=== PATIENT | female | born 1955 | race Caucasian/White ===

== ENCOUNTER 2017-08-17 16:24 | Emergency (ER) | payer MEDICAID ==
[2017-08-17 16:24] VITALS: BMI 29.2
--- NOTE | 2017-08-17 17:14 | C.PDOC ---
History Of Present Illness 61-year-old female, presents to the emergency department with complaints of persistent left-upper quadrant pain/right lower chest wall pain, that started on 07/15, Patient had a nuclear stress test done for chronic chest pain, and since receiving injections, she has been having persistent pain in abdomen. Pain is intermittent in nature and worse at night. No weight loss, vomiting, or fevers. 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 Of note , she states her pain is different from her chronic mid-sternal chest pain. 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 Time Seen by Provider: 08/17/17 17:07 Chief Complaint (Nursing): Chest Pain History Per: Patient History/Exam Limitations: no limitations Onset/Duration Of Symptoms: Days Current Symptoms Are (Timing): Still Present Severity: Moderate Past Medical History Reviewed: Historical Data, Nursing Documentation, Vital Signs Vital Signs: Last Vital Signs Temp 97.7 F 08/17/17 16:44 Pulse 66 08/17/17 16:44 Resp 18 08/17/17 16:44 BP 147/75 08/17/17 16:44 Pulse Ox 96 08/17/17 17:24 - Medical History PMH: Anxiety, Depression, Gastritis, Gall Bladder Disease, Post Traumatic Stress Disorder Surgical History: Cholecystectomy, Tonsillectomy, Family History: States: No Known Family Hx - Social History Hx Tobacco Use: Yes Hx Alcohol Use: No Hx Substance Use: No - Immunization History Hx Tetanus Toxoid Vaccination: No Hx Influenza Vaccination: No Hx Pneumococcal Vaccination: No Review Of Systems Except As Marked, All Systems Reviewed And Found Negative. Constitutional: Negative for: Fever, Weight loss Cardiovascular: Positive for: Chest Pain Respiratory: Negative for: Shortness of Breath Gastrointestinal: Positive for: Abdominal Pain. Negative for: Nausea, Vomiting Musculoskeletal: Negative for: Back Pain Neurological: Negative for: Weakness, Numbness, Headache, Dizziness Physical Exam - Physical Exam Appears: Non-toxic, No Acute Distress Skin: Warm, Dry, No Rash Head: Atraumatic, Normacephalic Eye(s): bilateral: Normal Inspection, PERRL Nose: Normal Oral Mucosa: Moist Lips: Normal Appearing Neck: Normal ROM Cardiovascular: Rhythm Regular, No Murmur Respiratory: Normal Breath Sounds, No Accessory Muscle Use Gastrointestinal/Abdominal: Soft, No Tenderness Extremity: Normal ROM Neurological/Psych: Oriented x3, Normal Speech ED Course And Treatment - Laboratory Results Result Diagrams: 08/17/17 18:17 08/17/17 18:17 ECG: Interpreted By Me ECG Rhythm: Sinus Rhythm ECG Interpretation: Normal Rate From EC O2 Sat by Pulse Oximetry: 96 (on RA) Pulse Ox Interpretation: Normal Progress - Data Reviewed Data Reviewed: Lab, Diagnostic imaging, EKG Disposition - Disposition Disposition Time: 19:00 Condition: STABLE Forms: [facility] (Setswana) - Clinical Impression Clinical Impression: Abdominal pain - Scribe Statement The provider has reviewed the documentation as recorded by the Scribe (Eric Swan) All medical record entries made by the Scribe were at my direction and personally dictated by me. I have reviewed the chart and agree that the record accurately reflects my personal performance of the history, physical exam, medical decision making, and the department course for this patient. I have also personally directed, reviewed, and agree with the discharge instructions and disposition. Physician Patient Turnover Patient Signed Over To: Tigist Ruth Handoff Comments: ANGEL CT, DISPO
[2017-08-17] MEDS ORDERED: Iohexol 240 (50 ml) PO ONE (18:09)
--- NOTE | 2017-08-17 18:16 | RAD ---
HISTORY: abd pain COMPARISON: Chest radiograph dated 06/21/2016. TECHNIQUE: Chest PA and lateral FINDINGS: LUNGS: No active pulmonary disease. PLEURA: No significant pleural effusion identified. No pneumothorax apparent. CARDIOVASCULAR: Normal. OSSEOUS STRUCTURES: No significant abnormalities. VISUALIZED UPPER ABDOMEN: Normal. OTHER FINDINGS: None. IMPRESSION: No active disease.
[2017-08-17] MEDS ORDERED: Iohexol 240 (50 ml) ONE (18:18)
[2017-08-17 18:20] LABS: BASO # 0.1 K/uL (0.0-0.2); BASO % 0.9 % (0.0-2.0); EOS # 0.3 K/uL (0.0-0.7); EOS % 3.7 % (0.0-4.0); HEMATOCRIT 39.2 % (34.0-47.0); LYMPH # 2.6 K/uL (1.0-4.3); LYMPH % 32.1 % (20.0-40.0); MEAN CORPUSCULAR HEMOGLOBIN 28.4 pg (27.0-31.0); MEAN PLATELET VOLUME 9.2 fL (7.2-11.7); MONO # 0.4 K/uL (0.0-0.8); MONO % 4.9 % (0.0-10.0); RED CELL DISTRIBUTION WIDTH 14.3 % (11.5-14.5); WHITE BLOOD COUNT 7.9 K/uL (4.8-10.8)
[2017-08-17 18:33] LABS: BILIRUBIN,TOTAL 0.7 mg/dL (0.2-1.3); CALCIUM 8.8 mg/dl (8.6-10.4); GFR AFRICAN-AMERICAN > 60; GLUCOSE,RANDOM 86 mg/dL (65-105); TOTAL PROTEIN 9.5 g/dL (6.3-8.3)
[2017-08-17 18:34] LABS: ALKALINE PHOSPHATASE 82 U/L (38-126); ALT/SGPT 24 U/L (9-52); AST/SGOT 31 U/L (14-36); BLOOD UREA NITROGEN 9 mg/dL (7-17); CARBON DIOXIDE 26 mmol/L (22-30); CHLORIDE 102 mmol/L (98-107); SODIUM 138 mmol/L (132-148)
[2017-08-17 19:48] VITALS: TEMP 98
[2017-08-17 20:06] LABS: RBC URINE 1 /hpf (0-3); URINE BILIRUBIN NEGATIVE (NEGATIVE); URINE BLOOD NEGATIVE (NEGATIVE); URINE COLOR Straw (YELLOW); URINE GLUCOSE (UA) NORMAL (Normal); URINE KETONE NEGATIVE (NEGATIVE); URINE LEUKOCYTE ESTERASE NEG Leu/uL (Negative); URINE PROTEIN NEGATIVE (NEGATIVE); URINE UROBILINOGEN NORMAL mg/dL (0.2-1.0); WBC URINE 1 /hpf (0-5)
[2017-08-17 22:13] VITALS: BP 135/63; PULSE 64; RESP 16; O2SAT 98
--- NOTE | 2017-08-18 09:36 | CT ---
PROCEDURE: CT Abdomen and Pelvis with contrast HISTORY: abd pain ho dextracardia COMPARISON: None. TECHNIQUE: Contrast dose: None administered. Radiation dose: Total exam DLP = 350.04 mGy-cm. This CT exam was performed using one or more of the following dose reduction techniques: Automated exposure control, adjustment of the mA and/or kV according to patient size, and/or use of iterative reconstruction technique. FINDINGS: LOWER THORAX: Dextro cardia again evident as well as right-sided thoracic aorta. LIVER: Liver is at the left upper quadrant. No suspicious findings seen throughout the liver in this unenhanced exam. GALLBLADDER AND BILE DUCTS: Gallbladder is located at the left upper quadrant. No acute gallbladder findings grossly evident. PANCREAS: Unremarkable. No gross lesion or ductal dilatation. SPLEEN: Spleen is located in the right upper quadrant but appears nonfocal once again. ADRENALS: Unremarkable. No mass. KIDNEYS AND URETERS: Unremarkable. No hydronephrosis. No solid mass. VASCULATURE: Unremarkable. No aortic aneurysm. BOWEL: Moderate fecal loading seen at the distal large bowel with the proximal and mid segments essentially collapsed. No pericolic reaction or fluid collection. APPENDIX: Normal appendix. PERITONEUM: Unremarkable. No free fluid. No free air. LYMPH NODES: Unremarkable. No enlarged lymph nodes. BLADDER: Unremarkable. REPRODUCTIVE: Unremarkable. BONES: No acute fracture. OTHER FINDINGS: None. IMPRESSION: 1. No acute abdominal or pelvic findings as discussed above. 2. Delete status inversus again appreciated. No suspicious interval findings. 3. Prior cholecystectomy again evident.
--- NOTE | 2017-08-20 13:13 | CARD ---
APPROVED REPORT EKG Measurement Heart [id number] <Conclusion> Normal sinus rhythm Misplaced Leads [id number]-V6 Abnormal ECG PLEASE REPEAT
== END 2017-08-17 22:13 | disposition home or self-care (01) ==
LOC: C.ER 16:24
DX: R10.9 Unspecified abdominal pain (principal); K82.9 Disease of gallbladder, unspecified; F41.9 Anxiety disorder, unspecified
CPT/HCPCS: 71020; 74176; 80053; 81001; 83690; 84484; 85025; 93005; 96374; 99285; J2270; Q9966

== ENCOUNTER 2017-10-07 23:20 | Emergency (ER) | payer MEDICAID ==
[2017-10-07 23:21] VITALS: BMI 29.2
[2017-10-07 23:34] VITALS: RESP 18
--- NOTE | 2017-10-08 00:27 | C.PDOC ---
History Of Present Illness The patient presents to the ED for evaluation of left-sided chest pain and mid- epigastric pain which began earlier today. Patient states her symptoms began after she received some localized injections for muscle spasms at her PMD's office earlier today. Patient is speaking in complete sentences and denies fever , chills, cough, shortness of breath, nausea, vomiting. Time Seen by Provider: 10/08/17 00:26 Chief Complaint (Nursing): Abdominal Pain History Per: Patient History/Exam Limitations: no limitations Onset/Duration Of Symptoms: Hrs Current Symptoms Are (Timing): Still Present Severity: Mild Pain Scale Rating Of: 2 Location Of Pain/Discomfort: Epigastric (mid) Radiation Of Pain To:: None Quality Of Discomfort: "Pain" Associated Symptoms: Chest Pain (left-sided ). denies: Fever, Chills, Nausea, Vomiting, Diarrhea Exacerbating Factors: None Alleviating Factors: None Recent travel outside of the [place]: No Additional History Per: Patient Abnormal Vaginal Bleeding: No Past Medical History Reviewed: Historical Data, Nursing Documentation, Vital Signs Vital Signs: Last Vital Signs Temp 97.5 F L 10/08/17 03:27 Pulse 72 10/08/17 03:27 Resp 18 10/08/17 03:27 BP 111/58 L 10/08/17 03:27 Pulse Ox 97 10/08/17 05:36 - Medical History PMH: Anxiety, Depression, Gastritis, Gall Bladder Disease, Post Traumatic Stress Disorder Surgical History: Cholecystectomy, Tonsillectomy, Family History: States: Unknown Family Hx - Social History Hx Tobacco Use: Yes Hx Alcohol Use: No Hx Substance Use: No - Immunization History Hx Tetanus Toxoid Vaccination: No Hx Influenza Vaccination: No Hx Pneumococcal Vaccination: No Review Of Systems Constitutional: Negative for: Fever, Chills Cardiovascular: Positive for: Chest Pain (left-sided). Negative for: Palpitations Respiratory: Negative for: Cough, Shortness of Breath Gastrointestinal: Positive for: Abdominal Pain (mid-epigastric ). Negative for : Nausea, Vomiting, Diarrhea Skin: Negative for: Rash, Lesions, Jaundice, Bruising Physical Exam - Physical Exam Appears: Non-toxic, No Acute Distress Skin: Warm, Dry Head: Normacephalic Eye(s): bilateral: Normal Inspection Oral Mucosa: Moist Throat: No Erythema, No Exudate, Other (clear oropharynx) Neck: Supple Chest: Symmetrical, No Deformity, No Tenderness Cardiovascular: Rhythm Regular, No Murmur, Other (dextrocardia) Respiratory: No Rales, No Rhonchi, No Wheezing Gastrointestinal/Abdominal: Soft, Tenderness (mild, epigastric ), No Guarding, No Rebound Extremity: Normal ROM, Capillary Refill (less than 2 seconds ) Neurological/Psych: Oriented x3 Gait: Steady ED Course And Treatment - Laboratory Results Result Diagrams: 10/08/17 03:39 10/08/17 03:39 ECG: Interpreted By Me, Viewed By Me ECG Rhythm: Nonspecific Changes O2 Sat by Pulse Oximetry: 97 (on RA) Pulse Ox Interpretation: Normal - Radiology CXR: Interpreted by Me, Viewed By Me CXR Interpretation: No: Infiltrates, Fracture, Pnemothorax Reevaluation Time: 06:03 Reassessment Condition: Improved Medical Decision Making Medical Decision Making: Upon provider reevaluation patient is feeling better, is medically stable, and requires no further treatment in the ED at this time. Patient will be discharged home . Counseling was provided and all questions were answered regarding diagnosis and need for follow up with dr quezada. There is agreement to discharge plan. Return if symptoms persist or worsen. Disposition Counseled Patient/Family Regarding: Studies Performed, Diagnosis, Need For Followup - Disposition Referrals: José Antonio Quezada MD [Medical Doctor] - Disposition: HOME/ ROUTINE Disposition Time: 00:27 Condition: FAIR Instructions: Chest Wall Pain (ED), Thoracic Pain (ED) Forms: [facility] (Pashto) - Clinical Impression Clinical Impression: Chest wall pain - Scribe Statement The provider has reviewed the documentation as recorded by the Scribe (Sherrell Posada) Provider Attestation: All medical record entries made by the Scribe were at my direction and personally dictated by me. I have reviewed the chart and agree that the record accurately reflects my personal performance of the history, physical exam, medical decision making, and the department course for this patient. I have also personally directed, reviewed, and agree with the discharge instructions and disposition.
[2017-10-08] MEDS ORDERED: Aspirin 325 mg EC Tablets PO STA (02:38)
[2017-10-08] MEDS ORDERED: Sodium Chloride 0.9% 500 ML IV ONE (02:38)
[2017-10-08] MEDS ORDERED: Aspirin 325 mg EC Tablets PO ONE (03:07)
[2017-10-08] MEDS ORDERED: Sodium Chloride 0.9% 1,000 ML ONE (03:08)
[2017-10-08 03:42] LABS: BASO % 0.2 % (0.0-2.0); HEMOGLOBIN 11.8 g/dL (11.0-16.0); LYMPH # 1.2 K/uL (1.0-4.3); MEAN CELL VOLUME 85.8 fL (81.0-99.0); MEAN CORPUSCULAR HEMOGLOBIN 28.3 pg (27.0-31.0); MEAN PLATELET VOLUME 9.8 fL (7.2-11.7); MONO # 0.1 K/uL (0.0-0.8); MONO % 0.7 % (0.0-10.0); NEUT # 10.5 K/uL (1.8-7.0); NEUT % 89.1 % (50.0-75.0); RBC 4.17 Mil/uL (3.80-5.20); RED CELL DISTRIBUTION WIDTH 14.6 % (11.5-14.5); WHITE BLOOD COUNT 11.7 K/uL (4.8-10.8)
[2017-10-08 03:54] LABS: ALBUMIN 4.3 g/dL (3.5-5.0); ALT/SGPT 42 U/L (9-52); AST/SGOT 38 U/L (14-36); BLOOD UREA NITROGEN 9 mg/dL (7-17); CALCIUM 9.6 mg/dl (8.6-10.4); GFR AFRICAN-AMERICAN > 60; GFR NON-AFRICAN AMERICAN > 60
[2017-10-08 06:11] VITALS: BP 135/69; PULSE 79; TEMP 98; O2SAT 98
--- NOTE | 2017-10-08 08:38 | RAD ---
PROCEDURE: CHEST RADIOGRAPH, 1 VIEW HISTORY: chest pain COMPARISON: 06/21/2016 and 10/31/2015 FINDINGS: LUNGS: Clear. PLEURA: No pneumothorax or pleural fluid seen. CARDIOVASCULAR: Normal. OSSEOUS STRUCTURES: No significant abnormalities. VISUALIZED UPPER ABDOMEN: Normal. OTHER FINDINGS: None. IMPRESSION: No active disease. The left and right labeling is assumed incorrect ; given the normal sided aortic arch on prior chest x-rays
== END 2017-10-08 06:10 | disposition home or self-care (01) ==
LOC: C.ER 23:20
DX: R07.89 Other chest pain (principal); Z87.891 Personal history of nicotine dependence
CPT/HCPCS: 71045; 80053; 84484; 85025; 96374; 96375; 99284; J1885; J7040

== ENCOUNTER 2018-04-02 18:10 | Emergency (ER) | payer MEDICAID ==
[2018-04-02 18:10] VITALS: BMI 29.2
[2018-04-02 18:45] VITALS: PULSE 60; O2SAT 100
--- NOTE | 2018-04-02 19:34 | C.PDOC ---
History Of Present Illness 62 year old female presents to the emergency department with complaints of back pain (contrary to triage notes). Patient reports that her pain has been worsening over the last two months, and she states that she feels as if someone is "stabbing her in the back". She denies fever, chills, nausea, and vomiting. Time Seen by Provider: 04/02/18 19:33 Chief Complaint (Nursing): Abdominal Pain History Per: Patient History/Exam Limitations: no limitations Onset/Duration Of Symptoms: Other (two months) Current Symptoms Are (Timing): Worse Severity: Moderate Pain Scale Rating Of: 4 Location Of Pain/Discomfort: Other (back) Quality Of Discomfort: "Pain" Associated Symptoms: Back Pain. denies: Fever, Chills, Nausea, Vomiting Past Medical History Reviewed: Historical Data, Nursing Documentation, Vital Signs Vital Signs: Last Vital Signs Temp 98.3 F 04/02/18 18:39 Pulse 60 04/02/18 18:39 Resp 20 04/02/18 18:39 BP 130/63 04/02/18 18:39 Pulse Ox 100 04/02/18 20:43 - Medical History PMH: Anxiety, Depression, Fibromyalgia, Gastritis, Gall Bladder Disease, Post Traumatic Stress Disorder Surgical History: Cholecystectomy, Tonsillectomy, Family History: States: No Known Family Hx - Social History Hx Tobacco Use: Yes Hx Alcohol Use: No Hx Substance Use: No - Immunization History Hx Tetanus Toxoid Vaccination: No Hx Influenza Vaccination: No Hx Pneumococcal Vaccination: No Review Of Systems Constitutional: Negative for: Fever, Chills Gastrointestinal: Negative for: Nausea, Vomiting Musculoskeletal: Positive for: Back Pain Physical Exam - Physical Exam Appears: Non-toxic, No Acute Distress Skin: Warm, Dry Head: Normacephalic Eye(s): bilateral: Normal Inspection Oral Mucosa: Moist Neck: Trachea Midline, Supple Chest: Symmetrical Cardiovascular: Rhythm Regular, No Murmur Respiratory: No Rales, No Rhonchi, No Wheezing Gastrointestinal/Abdominal: Soft, No Tenderness, No Guarding, No Rebound Back: No Decreased ROM, Paraspinal Tenderness (reproducible pain left mid- scapulary line between T5-T8 and left mid-axillary line between T7-T9.), Other ( no sign of trauma) Extremity: Bilateral: Normal Color And Temperature Pulses: Left Dorsalis Pedis: Normal, Right Dorsalis Pedis: Normal Neurological/Psych: Oriented x3, Other (no focal deficits) ED Course And Treatment - Laboratory Results Result Diagrams: 04/02/18 19:59 04/02/18 19:59 O2 Sat by Pulse Oximetry: 100 (RA) Pulse Ox Interpretation: Normal - CT Scan/US CT Chest Other Rad Studies (CT/US): Read By Radiologist, Radiology Report Reviewed CT/US Interpretation: IMPRESSION: No acute cardiopulmonary process Progress Note: Plan: CT Chest w/o Contrast. CMP. Lipase. CBC. PTT. Prothombin Time. NaCl IV Fluids. Toradol 30mg IVP. Urinalysis Reevaluation Time: 21:29 Reassessment Condition: Improved Disposition Counseled Patient/Family Regarding: Studies Performed, Diagnosis, Need For Followup, Rx Given - Disposition Referrals: José Antonio Quezada MD [Medical Doctor] - Disposition: HOME/ ROUTINE Disposition Time: 19:33 Condition: FAIR Additional Instructions: Please return if symptoms recur Prescriptions: Naproxen [Naprosyn] 1 tab PO BID PRN #25 tab PRN Reason: Pain Instructions: Costochondritis (DC), Upper Back Pain (DC) Forms: [facility] (Arabic) Print Language: URDU - Clinical Impression Clinical Impression: Costochondral chest pain, Back pain, Muscle strain - Scribe Statement The provider has reviewed the documentation as recorded by the Scribe (Carson Minor) Provider Attestation: All medical record entries made by the Scribe were at my direction and personally dictated by me. I have reviewed the chart and agree that the record accurately reflects my personal performance of the history, physical exam, medical decision making, and the department course for this patient. I have also personally directed, reviewed, and agree with the discharge instructions and disposition.
[2018-04-02] MEDS ORDERED: Sodium Chloride 0.9% 1,000 ML IV ONE (19:38)
[2018-04-02] MEDS ORDERED: Sodium Chloride 0.9% 1,000 ML ONE (19:54)
[2018-04-02 20:05] LABS: BASO # 0.1 K/uL (0.0-0.2); BASO % 0.8 % (0.0-2.0); EOS # 0.3 K/uL (0.0-0.7); EOS % 3.7 % (0.0-4.0); HEMOGLOBIN 11.4 g/dL (11.0-16.0); LYMPH # 3.3 K/uL (1.0-4.3); LYMPH % 41.1 % (20.0-40.0); MEAN CELL VOLUME 83.6 fL (81.0-99.0); MEAN CORPUSCULAR HEMOGLOBIN 28.1 pg (27.0-31.0); MEAN CORPUSCULAR HGB CONC 33.7 g/dL (33.0-37.0); MEAN PLATELET VOLUME 9.3 fL (7.2-11.7); MONO # 0.6 K/uL (0.0-0.8); MONO % 7.3 % (0.0-10.0); NEUT # 3.7 K/uL (1.8-7.0); NEUT % 47.1 % (50.0-75.0); NRBC % 0.2 % (0.0-2.0); RBC 4.06 Mil/uL (3.80-5.20); RED CELL DISTRIBUTION WIDTH 15.4 % (11.5-14.5); WHITE BLOOD COUNT 7.9 K/uL (4.8-10.8)
[2018-04-02 20:14] LABS: INR 1.1; PROTHROMBIN TIME 11.7 SECONDS (9.7-12.2)
[2018-04-02 20:31] LABS: ALB/GLOB RATIO 1.1 (1.0-2.1); ALBUMIN 4.2 g/dL (3.5-5.0); GFR AFRICAN-AMERICAN > 60; GFR NON-AFRICAN AMERICAN > 60; LIPASE 121 U/L (23-300)
[2018-04-02 20:40] LABS: ALT/SGPT 24 U/L (9-52); AST/SGOT 28 U/L (14-36); BLOOD UREA NITROGEN 12 mg/dL (7-17)
[2018-04-02 21:07] LABS: SQUAMOUS EPITHIAL 2 /hpf (0-5); URINE BACTERIA OCC (<OCC); URINE BILIRUBIN NEGATIVE (NEGATIVE); URINE BLOOD NEGATIVE (NEGATIVE); URINE CLARITY Hazy (Clear); URINE COLOR Yellow (YELLOW); URINE GLUCOSE (UA) NORMAL (Normal); URINE LEUKOCYTE ESTERASE 3+ Leu/uL (Negative); URINE PROTEIN NEGATIVE (NEGATIVE); URINE UROBILINOGEN NORMAL mg/dL (0.2-1.0)
[2018-04-02 21:48] VITALS: BP 127/62; RESP 18; TEMP 98
--- NOTE | 2018-04-03 09:34 | CT ---
Date of service: 04/02/2018 PROCEDURE: CT Chest without contrast HISTORY: left mid scapular T5-8 pain COMPARISON: None available. TECHNIQUE: Contiguous axial images were obtained through the chest without intravenous contrast enhancement. Sagittal and coronal reconstructions were performed. Radiation dose (DLP): 192.97 mGy-cm. This CT exam was performed using one or more of the following dose reduction techniques: Automated exposure control, adjustment of the mA and/or kV according to patient size, and/or use of iterative reconstruction technique. FINDINGS: LUNGS: Clear lungs. Visualized airway clear. MEDIASTINUM: TheRight-sided thoracic aorta. Mild aneurysmal dilatation of the ascending thoracic aorta noted measures 3.7 centimeter. The aortic arch is ectatic. The descending thoracic aorta is normal in caliber. . The heart is normal in size . Main pulmonary artery unremarkable. No vascular congestion. No lymphadenopathy. PLEURA: No pleural fluid. No pneumothorax. BONES: No fracture. No destructive lesion. UPPER ABDOMEN: Patient status post cholecystectomy. OTHER FINDINGS: None. IMPRESSION: No evidence of pneumonia or mass lesion in the lungs. Mild aneurysmal dilatation of the ascending thoracic aorta. Preliminary report was submitted by the [facility].
== END 2018-04-02 21:49 | disposition home or self-care (01) ==
LOC: C.ER 18:10
DX: M54.9 Dorsalgia, unspecified (principal); R07.1 Chest pain on breathing; T14.8XXA Other injury of unspecified body region, initial encounter; X58.XXXA Exposure to other specified factors, initial encounter; N39.0 Urinary tract infection, site not specified; Z72.0 Tobacco use
CPT/HCPCS: 71250; 80053; 81001; 83690; 85025; 85610; 85730; 96361; 96374; 99285; J1885; J7030

== ENCOUNTER 2018-11-24 19:09 | Emergency (ER) | payer MEDICAID ==
[2018-11-24 19:09] VITALS: BMI 29.2
[2018-11-24 19:31] VITALS: BP 144/86; PULSE 82; RESP 20; TEMP 98.2; O2SAT 98
--- NOTE | 2018-11-24 21:32 | C.PDOC ---
History Of Present Illness 63 year old female, whose past medical history includes fibromyalgia, anxiety, depression, PTSD, GERD, and dextrocardia, presents to the ED for evaluation of upper back pain that has been intermittent for around 8 months. Patient was evaluated in this ED 8 months ago and underwent a CT scan of her chest. Patient was discharged with instructions to follow up with her primary care doctor. Patient's doctor evaluated her and referred her to pain management. Patient notes her pain occasionally radiates to her chest, and thinks her symptoms may indicate an issue with her heart. Patient has been taking Ibuprofen, Tylenol and Flexeril with limited relief. She denies fever, chills, urinary/bowel incontinence, extremity numbness/weakness, or recent trauma/falls. Time Seen by Provider: 11/24/18 19:45 Chief Complaint (Nursing): Back Pain History Per: Patient History/Exam Limitations: no limitations Onset/Duration Of Symptoms: Other (8 months ) Quality Of Discomfort: "Pain" Previous Symptoms: Back Pain Associated Symptoms: denies: Incontinence, New Weakness, New Numbness Additional History Per: Patient Past Medical History Reviewed: Historical Data, Nursing Documentation, Vital Signs Vital Signs: Last Vital Signs Temp 98.2 F 11/24/18 19:25 Pulse 82 11/24/18 19:25 Resp 20 11/24/18 19:25 BP 144/86 11/24/18 19:25 Pulse Ox 98 11/24/18 19:25 - Medical History PMH: Anxiety, Depression, Fibromyalgia, Gastritis, Gall Bladder Disease, Post Traumatic Stress Disorder Surgical History: Cholecystectomy, Tonsillectomy, Family History: States: Unknown Family Hx - Social History Hx Tobacco Use: Yes Hx Alcohol Use: No Hx Substance Use: No - Immunization History Hx Tetanus Toxoid Vaccination: No Hx Influenza Vaccination: No Hx Pneumococcal Vaccination: No Review Of Systems Constitutional: Negative for: Fever, Chills, Weakness Cardiovascular: Negative for: Chest Pain Respiratory: Negative for: Cough, Shortness of Breath Gastrointestinal: Negative for: Nausea, Vomiting, Diarrhea Genitourinary: Negative for: Dysuria, Incontinence, Hematuria Musculoskeletal: Positive for: Back Pain Neurological: Negative for: Weakness, Numbness, Dizziness Physical Exam - Physical Exam Appears: Well, Non-toxic, No Acute Distress Skin: Normal Color, Warm, No Rash Head: Atraumatic, Normacephalic Eye(s): bilateral: Normal Inspection (no scleral icterus ), PERRL, EOMI Neck: Normal ROM, Supple Chest: Symmetrical, No Deformity, No Tenderness Cardiovascular: Rhythm Regular, No Murmur Respiratory: No Accessory Muscle Use, Other (normal inspiratory effort ) Gastrointestinal/Abdominal: Soft, No Distention Back: Other (ambulating with steady upright gait ) Extremity: Normal ROM Extremity: Bilateral: Atraumatic Neurological/Psych: Oriented x3, Normal Cranial Nerves (grossly intact ), Other (appears anxious) ED Course And Treatment O2 Sat by Pulse Oximetry: 98 (on RA) Pulse Ox Interpretation: Normal Medical Decision Making Medical Decision Making: Progress: CXR and EKG ordered and reviewed. Toradol IM given. CXR results are unremarkable, aside from evidence of dextrocardia. EKG results are within normal limits. Patient is requesting an MRI. I explained to the patient that MRI is an outpatient test. Patient states that she is frustrated because her PMD has not referred her to an orthopedist. I have provided patient with a list of orthopedists for further evaluation. On reassessment, patient is resting comfortably, showing no signs of distress and reports an improvement in her pain. Patient is ambulatory in the ED with a steady gait and is stable for discharge. She is advised to follow up with her PMD and orthopedic care within 1-2 days for further evaluation. Disposition Counseled Patient/Family Regarding: Diagnosis, Need For Followup - Disposition Referrals: Monie Alicia MD [Staff Provider] - Bennie Jeong III, MD [Staff Provider] - Disposition: HOME/ ROUTINE Disposition Time: 21:31 Condition: STABLE Instructions: Upper Back Pain (DC) Forms: Gen Discharge Inst Iranian, [facility] (Iranian) Print Language: SAMI - Clinical Impression Clinical Impression: Thoracic back pain - PA / GETTERER / Resident Statement MD/DO has reviewed & agrees with the documentation as recorded. - Scribe Statement The provider has reviewed the documentation as recorded by the Scribe (Sherrell Posada) All medical record entries made by the Scribe were at my direction and personally dictated by me. I have reviewed the chart and agree that the record accurately reflects my personal performance of the history, physical exam, medical decision making, and the department course for this patient. I have also personally directed, reviewed, and agree with the discharge instructions and disposition.
--- NOTE | 2018-11-25 10:36 | RAD ---
HISTORY: pain COMPARISON: Chest x-ray performed 10/08/17 TECHNIQUE: Chest PA and lateral FINDINGS: LUNGS: Mild biapical pleural thickening. No focal consolidation. Please note that chest x-ray has limited sensitivity for the detection of pulmonary masses. PLEURA: No significant pleural effusion identified. No definite pneumothorax . CARDIOVASCULAR: Mediastinal prominence consistent with ascending aortic aneurysm demonstrated on CT of the chest 04/02/18. Heart size appears within normal limits. Faint atherosclerotic calcifications of the aorta. OSSEOUS STRUCTURES: No acute osseous abnormality identified. VISUALIZED UPPER ABDOMEN: Unremarkable. OTHER FINDINGS: None. IMPRESSION: Mediastinal prominence consistent with ascending aortic aneurysm demonstrated on CT of the chest 04/02/18. CTA of the chest considered for further evaluation if indicated. No focal consolidation.
--- NOTE | 2018-11-28 20:03 | CARD ---
APPROVED REPORT Date of service: 11/24/2018 EKG Measurement Heart [id number] FL 128P [id number] <Conclusion> Sinus bradycardia Left posterior fascicular block Abnormal ECG
== END 2018-11-24 21:55 | disposition home or self-care (01) ==
LOC: C.ER 19:09
DX: M54.6 Pain in thoracic spine (principal); M79.7 Fibromyalgia; Z72.0 Tobacco use
CPT/HCPCS: 71046; 96372; 99283; J1885